=== PATIENT | male | born 1955 | race Caucasian/White ===

== ENCOUNTER 2017-04-03 05:53 | Inpatient (IN) | payer BC ==
[2017-04-03] MEDS ORDERED: SODIUM CHLORIDE 0.9% 1000 ML INFUS.BAG IV ONE (06:16)
[2017-04-03] MEDS ORDERED: ACETAMINOPHEN 1000 MG/100 ML VIAL (NON FORMULARY) IVPB ONE (06:17)
[2017-04-03] MEDS ORDERED: ACETAMINOPHEN INJECTION 100 ML IVPB ONE (06:21)
--- NOTE | 2017-04-03 06:46 | PDOC ---
History of Present Illness - General History Source: Patient, Family Exam Limitations: No Limitations - History of Present Illness Initial Comments: 04/03/17 06:47 The patient is a 62 year old male with a significant past medical history of hyperlipidemia and GERD who presents with two days of increasing productive cough (productive of clear sputum), sore throat and generalized weakness as well as subjective fever and chills this morning. He denies palpitations, dyspnea, orthopnea. He denies headache, neck pain or stiffness, rash. He denies urinary frequency/urgency/hesitancy/dysuriua. He denies abdominal pain, nausea, vomiting, diarrhea. He denies recent dental work, surgery, colonoscopy. No recent travel. He has had a tremor for several months and is seeing a neurologist and has not been formally diagnosed with anything. 04/03/17 06:52 04/03/17 07:09 <Fred Phoenix - Last Filed: 04/03/17 08:02> <Andree Arteaga - Last Filed: 04/03/17 08:46> - General Chief Complaint: SIRS, Suspected/Possible Stated Complaint: DIZZINESS Time Seen by Provider: 04/03/17 06:18 Past History - Past Medical History Hypercholesterolemia: Yes - Psycho/Social/Smoking Cessation Hx Suicidal Ideation: No Smoking History: Never smoked Have you smoked in the past 12 months: No Number of Cigarettes Smoked Daily: 0 Information on smoking cessation initiated: No Hx Alcohol Use: No Drug/Substance Use Hx: No <Fred Phoenix - Last Filed: 04/03/17 08:02> <Andree Arteaga - Last Filed: 04/03/17 08:46> - Past Medical History Allergies/Adverse Reactions: Allergies Allergy/AdvReac Type Severity Reaction Status Date / Time No Known Allergies Allergy Verified 04/03/17 06:06 Home Medications: Ambulatory Orders Simvastatin [Zocor -] 20 mg PO HS 04/03/17 Review of Systems - Review of Systems Comments:: 04/03/17 06:50 CONSTITUTIONAL: Present: fever, chills, diaphoresis, generalized weakness, malaise, loss of appetite HEENT: Present: sore throat Absent: rhinorrhea, nasal congestion, throat swelling, difficulty swallowing, mouth swelling, ear pain, eye pain, visual Changes CARDIOVASCULAR: Absent: chest pain, loss of consciousness, palpitations, irregular heart rate, peripheral edema RESPIRATORY: Present: cough Absent: shortness of breath, dyspnea with exertion, orthopnea, wheezing, stridor , hemoptysis GASTROINTESTINAL: Absent: abdominal pain, abdominal distension, nausea, vomiting, diarrhea, constipation, melena, hematochezia GENITOURINARY: Absent: dysuria, frequency, urgency, hesitancy, hematuria, flank pain, genital pain MUSCULOSKELETAL: Absent: myalgia, arthralgia, joint swelling SKIN: Absent: rash, itching, pallor HEMATOLOGIC/IMMUNOLOGIC: Absent: easy bleeding, easy bruising, lymphadenopathy, frequent infections ENDOCRINE: Absent: unexplained weight gain, unexplained weight loss, heat intolerance, cold intolerance NEUROLOGIC: Absent: headache, focal weakness or paresthesias, dizziness, unsteady gait, seizure, mental status changes, bladder or bowel incontinence PSYCHIATRIC: Absent: anxiety, depression, suicidal or homicidal ideation, hallucinations. <Fred Phoenix - Last Filed: 04/03/17 08:02> *Physical Exam - Vital Signs Last Vital Signs Temp Pulse Resp BP Pulse Ox 102.6 F H 100 H 14 151/83 97 04/03/17 06:06 04/03/17 06:06 04/03/17 06:06 04/03/17 06:06 04/03/17 06:06 - Physical Exam Comments: 04/03/17 06:51 GENERAL: Well developed, well nourished. Awake and alert. No acute distress. HEENT: Dry mucous membranes. Normocephalic, atraumatic. PERRLA, EOMI. No conjunctival pallor. Sclera are non- icteric. Oropharynx is clear. NECK: Supple. Full ROM. No JVD. Carotid pulses 2+ and symmetric, without bruits. No thyromegaly. No lymphadenopathy. CARDIOVASCULAR: Tachycardic rate and regular rhythm. No murmurs, rubs, or gallops. Distal pulses are 2+ and symmetric. PULMONARY: No evidence of respiratory distress. Lungs clear to auscultation bilaterally. No wheezing, rales or rhonchi. ABDOMINAL: Soft. Non-tender. Non-distended. No rebound or guarding. No organomegaly. Normoactive bowel sounds. MUSCULOSKELETAL Normal range of motion at all joints. No bony deformities or tenderness. No CVA tenderness. EXTREMITIES: No cyanosis. No clubbing. No edema. No calf tenderness. SKIN: Warm and dry. Normal capillary refill. No rashes. No jaundice. NEUROLOGICAL: Resting tremor. Alert, awake, appropriate. Cranial nerves 2-12 intact. No deficits to light touch and temperature in face, upper extremities and lower extremities. No motor deficits in the in face, upper extremities and lower extremities. Normoreflexic in the upper and lower extremities. Normal speech. Toes are down- going bilaterally. Gait is normal without ataxia. PSYCHIATRIC: Cooperative. Good eye contact. Appropriate mood and affect. 04/03/17 06:52 <Fred Phoenix - Last Filed: 04/03/17 08:02> - Vital Signs Last Vital Signs Temp Pulse Resp BP Pulse Ox 98.4 F 92 H 16 122/77 96 04/03/17 07:15 04/03/17 07:15 04/03/17 07:15 04/03/17 07:15 04/03/17 07:15 <Andree Arteaga - Last Filed: 04/03/17 08:46> Heart Score/ECG Review - ECG Intrepretation Comment:: 04/03/17 06:54 Normal sinus rhythm at 98, wavy baseline (patient is tremulous), normal axis, normal intervals, no ST changes Baseline complicates interpretation <Fred Phoenix - Last Filed: 04/03/17 08:02> ED Treatment Course - LABORATORY CBC & Chemistry Diagram: 04/03/17 06:30 04/03/17 06:30 - Medications Given in the ED: ED Medications Discontinued Medications Generic Name Dose Route Start Last Admin Trade Name José PRN Reason Stop Dose Admin Acetaminophen 1,000 mg 04/03/17 06:17 04/03/17 06:45 Ofirmev Injection - IVPB 04/03/17 06:18 1,000 mg ONCE ONE Administration Sodium Chloride 1,000 ml 04/03/17 06:16 04/03/17 06:45 Normal Saline - IV 04/03/17 06:17 1,000 ml ONCE ONE Administration <Fred Phoenix - Last Filed: 04/03/17 08:02> - LABORATORY CBC & Chemistry Diagram: 04/03/17 06:30 04/03/17 06:30 - ADDITIONAL ORDERS Additional order review: Laboratory Results 04/03/17 04/03/17 04/03/17 07:05 06:30 06:30 INR PTT (Actin FS) VBG pH POC VBG pCO2 POC VBG pO2 Mixed VBG HCO3 Sodium Potassium Chloride Carbon Dioxide Anion Gap BUN Creatinine Creat Clearance w eGFR Random Glucose Lactic Acid 1.857 Calcium Total Bilirubin AST ALT Alkaline Phosphatase Creatine Kinase Troponin I Total Protein Albumin Urine Color Ltyellow Urine Appearance Clear Urine pH 6.0 Urine Protein Negative Urine Glucose (UA) Negative Urine Ketones Negative Urine Blood 1+ H Urine Nitrite Negative Urine Bilirubin Negative Urine Urobilinogen Negative Ur Leukocyte Esterase Negative Blood Type A POSITIVE Antibody Screen Negative 04/03/17 04/03/17 04/03/17 06:30 06:30 06:30 INR 1.20 H PTT (Actin FS) 40.6 H VBG pH 7.49 H POC VBG pCO2 30.2 L POC VBG pO2 132.0 H Mixed VBG HCO3 23.1 Sodium 138 Potassium 3.7 Chloride 104 Carbon Dioxide 26 Anion Gap 8 BUN 14 Creatinine 1.0 Creat Clearance w eGFR > 60 Random Glucose 113 H Lactic Acid Calcium 8.4 L Total Bilirubin 0.4 AST 16 ALT 23 Alkaline Phosphatase 67 Creatine Kinase 114 Troponin I < 0.02 Total Protein 6.8 Albumin 3.8 Urine Color Urine Appearance Urine pH Urine Protein Urine Glucose (UA) Urine Ketones Urine Blood Urine Nitrite Urine Bilirubin Urine Urobilinogen Ur Leukocyte Esterase Blood Type Antibody Screen 04/03/17 06:30 RBC 4.54 MCV 90.3 MCHC 33.2 RDW 13.6 MPV 8.2 Neutrophils % 84.1 H Lymphocytes % 10.1 Monocytes % 4.9 Eosinophils % 0.3 Basophils % 0.6 - Medications Given in the ED: ED Medications Discontinued Medications Generic Name Dose Route Start Last Admin Trade Name Freq PRN Reason Stop Dose Admin Acetaminophen 1,000 mg 04/03/17 06:17 04/03/17 06:45 Ofirmev Injection - IVPB 04/03/17 06:18 1,000 mg ONCE ONE Administration Sodium Chloride 1,000 ml 04/03/17 06:16 04/03/17 06:45 Normal Saline - IV 04/03/17 06:17 1,000 ml ONCE ONE Administration <Andree Arteaga - Last Filed: 04/03/17 08:46> Medical Decision Making - Medical Decision Making 04/03/17 06:53 The patient is well appearing and in no acute distress The patient has 2 SIRS criteria and we suspect infection qSOFA score 0 He meets diagnostic criteria for sepsis Will initiate sepsis order set 04/03/17 06:55 04/03/17 07:54 Labs noted Chest x-ray emergency Department interpretation: Increased interstitial markings bilaterally CURB 65: 0 But given sepsis, will treat inpatient Clinical impression: Community-acquired pneumonia Sepsis Case discussed in detail with admitting provider including history, physical exam and ancillary studies. Admitting physician has assumed care for the patient, will follow all pending diagnostics and will complete the evaluation and treatment. 04/03/17 08:02 <Fred Phoenix - Last Filed: 04/03/17 08:02> - Medical Decision Making 04/03/17 08:05 Chest Xray read by Dr. Phoenix at 8:00 AM Impression: Increased interstitial markings bilaterally 8:03 AM- Dr. Hernandes called at [phone] 8:04 AM- Dr. Hernandes called at [phone] 8:05 AM- Voice mail left for Dr. Hernandes at [phone] for pending admission. 8:40 AM- Dr Hernandes called at [phone] 8:43 AM- Dr. Hernandes called at [phone] 8:44 AM- Dr Hernandes responded to the page and patient's case was discussed. <Andree Arteaga - Last Filed: 04/03/17 08:46> *DC/Admit/Observation/Transfer - Discharge Dispostion Admit: Yes <Fred Phoenix - Last Filed: 04/03/17 08:02> <Andree Arteaga - Last Filed: 04/03/17 08:46> Diagnosis at time of Disposition: Sepsis, Pneumonia - Referrals
[2017-04-03 06:51] LABS: BASOPHIL 0.6 % (0-2.0); EOSINOPHIL 0.3 % (0-4.5); MCHC 33.2 g/dl (32.0-35.9); MEAN CELL VOLUME 90.3 fl (80-96); MEAN PLT VOLUME 8.2 fl (7.5-11.1); NEUTROPHILS 84.1 % (42.8-82.8); PLATELET COUNT 196 K/MM3 (134-434); RDW 13.6 % (11.9-15.9); VENOUS BLOOD GAS HCO3 23.1 meq/L (19-25); VENOUS PH 7.49 (7.32-7.42)
[2017-04-03 07:09] LABS: INR 1.2 (0.82-1.09); PROTHROMBIN TIME (PATIENT) 13.2 SEC (9.98-11.88)
[2017-04-03 07:11] LABS: ACTIVATED PTT 40.6 SECONDS (26.9-34.4)
[2017-04-03 07:17] LABS: ALBUMIN 3.8 g/dl (3.4-5.0); ANION GAP 8 (8-16); BILIRUBIN,TOTAL 0.4 mg/dL (0.2-1.0); CALCIUM 8.4 mg/dL (8.5-10.1); CO2 26 mmol/L (21-32); COCKROFT - GAULT 88.45; GLUCOSE,RANDOM 113 mg/dL (74-106); SGOT/AST 16 U/L (15-37); SGPT/ALT 23 U/L (12-78); TOT PROT 6.8 g/dl (6.4-8.2)
[2017-04-03 07:19] LABS: ALK PHOS 67 U/L (45-117); TROPONIN I < 0.02 ng/ml (0.00-0.05)
[2017-04-03 07:26] LABS: URINE APPEARANCE CLEAR; URINE BILIRUBIN NEGATIVE (NEGATIVE); URINE COLOR LTYELLOW; URINE GLUCOSE (UA) NEGATIVE (NEGATIVE); URINE KETONE NEGATIVE (NEGATIVE); URINE LEUK ESTERASE NEGATIVE (NEGATIVE); URINE NITRITE NEGATIVE (NEGATIVE); URINE PROTEIN NEGATIVE (NEGATIVE); URINE UROBILINOGEN NEGATIVE E.U./dl (0.2-1.0)
[2017-04-03 07:48] LABS: URINE BLOOD 1+ (NEGATIVE)
[2017-04-03] MEDS ORDERED: AZITHROMYCIN IVPB 500 MG in DEXTROSE 5%-WATER - 250 ML IVPB ONE (07:54)
[2017-04-03] MEDS ORDERED: CEFTRIAXONE 1 GM in DEXTROSE 5%-WATER - 50 ML IVPB ONE (07:54)
[2017-04-03] MEDS ORDERED: AZITHROMYCIN IVPB 250 ML IVPB ONE (07:57)
[2017-04-03] MEDS ORDERED: CEFTRIAXONE 50 ML ONE (07:57)
[2017-04-03] MEDS: SODIUM CHLORIDE 1,000 ML IV SCH ×3 (08:11→19:05)
[2017-04-03 08:32] LABS: URINE MUCUS FEW; URINE RBC 3 /hpf (0-3)
--- NOTE | 2017-04-03 17:26 | EKG ---
Test Reason : Blood Pressure : / mmHG Vent. Rate : 098 BPM Atrial Rate : 098 BPM P-R Int : 152 ms QRS Dur : 082 ms QT Int : 322 ms P-R-T Axes : 035 022 037 degrees QTc Int : 411 ms POOR DATA QUALITY, INTERPRETATION MAY BE ADVERSELY AFFECTED NORMAL SINUS RHYTHM Confirmed by RIVKA GREGG, KARRI ([id number]) on 04/03/2017 5:25:50 PM Referred By: Confirmed By:KARRI TINEO MD
[2017-04-04] MEDS ORDERED: ALBUTEROL SO4 2.5/IPRATROPIUM 0.5 INH SOL 3 ML VIAL.NEB. NEB PRN (00:46)
--- NOTE | 2017-04-04 02:09 | HP ---
Admitting History and Physical - Admission Chief Complaint: Cough History of Present Illness: Pt is a 62 year old male with PMH significant for HLD and GERD. Pt presented to the ER bc of a 3-4 day h/o cough wc is productive w/ greenish sputum. Pt has also noticed increased SOB w/ the cough and chills. He never took his temp at home however in ER he was found to have tmax of >102 w/ a normal WBC. In the ER pt had cxr wc showed ?superimposed infiltrate. - Past Medical History Cardiovascular: Yes: Hyperlipdemia Gastrointestinal: Yes: GERD - Smoking History Smoking history: Never smoked Have you smoked in the past 12 months: No Aproximately how many cigarettes per day: 0 - Alcohol/Substance Use Hx Alcohol Use: No Home Medications - Allergies Allergies/Adverse Reactions: Allergies Allergy/AdvReac Type Severity Reaction Status Date / Time No Known Allergies Allergy Verified 04/03/17 06:06 - Home Medications Home Medications: Ambulatory Orders Amlodipine Besylate [Norvasc -] 10 mg PO DAILY 04/03/17 Simvastatin [Zocor -] 20 mg PO HS 04/03/17 Family Disease History - Family Disease History Family History: Unremarkable Review of Systems - Review of Systems Constitutional: reports: Loss of Appetite, Weakness Eyes: reports: No Symptoms HENT: reports: No Symptoms Neck: reports: No Symptoms Respiratory: reports: Cough Gastrointestinal: reports: No Symptoms Genitourinary: reports: No Symptoms Physical Examination Vital Signs: Vital Signs Temperature 99.2 F 04/03/17 21:36 Pulse Rate 75 04/03/17 21:36 Respiratory Rate 16 04/03/17 21:36 Blood Pressure 126/69 04/03/17 21:36 O2 Sat by Pulse Oximetry (%) 96 04/03/17 10:10 Constitutional: Yes: Well Nourished Eyes: Yes: WNL HENT: Yes: WNL Neck: Yes: WNL Cardiovascular: Yes: WNL Respiratory: Yes: Rhonchi Gastrointestinal: Yes: WNL, Normal Bowel Sounds, Soft Extremities: Yes: WNL Edema: No Neurological: Yes: WNL, Alert, Oriented ...Motor Strength: WNL Problem List - Problems (1) Pneumonia Assessment/Plan: Cont IV ceftriaxone/zithro Cont nebulizers Pulmonary consult Cont IV fluids Code(s): J18.9 - PNEUMONIA, UNSPECIFIED ORGANISM (2) HTN (hypertension) Assessment/Plan: Cont norvasc and monitor BP Code(s): I10 - ESSENTIAL (PRIMARY) HYPERTENSION (3) HLD (hyperlipidemia) Assessment/Plan: Cont lipitor Code(s): E78.5 - HYPERLIPIDEMIA, UNSPECIFIED
[2017-04-04] MEDS: HEPARIN NA (PORCINE) 5,000 UNITS/ML 1ML VIAL SQ SCH ×2 (09:07→21:13)
[2017-04-04] MEDS: amLODIPine BESYLATE 10 MG TABLET (FP) PO SCH (09:07)
[2017-04-04] MEDS: AZITHROMYCIN IVPB 500 MG/250 ML D5W PRE-DOCKED IVPB SCH (09:08)
[2017-04-04] MEDS: SODIUM CHLORIDE 1,000 ML IV SCH ×2 (09:08→21:12)
[2017-04-04] MEDS: cefTRIAXone 1 GM/50 ML BAG (PRE-DOCKED) IVPB SCH (09:08)
[2017-04-04] MEDS ORDERED: AZITHROMYCIN IVPB 500 MG in DEXTROSE 5%-WATER - 250 ML IVPB SCH (10:00)
[2017-04-04] MEDS ORDERED: CEFTRIAXONE 1 GM in DEXTROSE 5%-WATER - 50 ML IVPB SCH (10:00)
--- NOTE | 2017-04-04 11:33 | CONSULT ---
Consultation: REQUESTING PROVIDER: CONSULT REQUEST: We have been asked to medically evaluate this patient for ( pulmonology). HISTORY OF PRESENT ILLNESS: 62 y/o m with past medical h/o htn, hld. came to hospital with chief complaint of feeling cold/chills. Patient states that he has sore throat and productive cough from 2 days which is same from two days, phlem is white in color, no blood in phlem. Patient states that yesterday he started feeling cold/ chills so h came to hospital. He also states that he felt like his body is warm but didnt check temp. Denies sob, chest pain, palpitations , lightheadedness, dizziness. Patient granddaughter has runny nose and fever who lives with them. NO recent history of hospitalization. In Ed patient was found to have temp of 102 and right middle/lower lobe infiltrate and patient was started on Iv antibiotics. PMH: htn,hld allergies: NKDA social : non smoker, non alcholic REVIEW OF SYSTEMS: CONSTITUTIONAL: Absent: fever, chills, HEENT: Absent: rhinorrhea, nasal congestion, sore throat CARDIOVASCULAR: Absent: chest pain, syncope, palpitations, irregular heart rate, lightheadedness , peripheral edema RESPIRATORY: Absent: cough, shortness of breath, wheezing, stridor, hemoptysis GASTROINTESTINAL: Absent: abdominal pain, abdominal distension, nausea, vomiting, diarrhea, constipation, GENITOURINARY: Absent: dysuria, frequency, urgency, hesitancy, genital pain ENDOCRINE: Absent: unexplained weight gain, unexplained weight loss, NEUROLOGIC: Absent: headache, focal weakness or paresthesias, PHYSICAL EXAMINATION Vital Signs - 24 hr 04/03/17 04/03/17 04/04/17 14:04 21:36 03:05 Temperature 98.9 F 99.2 F Pulse Rate 77 75 Respiratory 18 16 Rate Blood Pressure 101/41 126/69 O2 Sat by Pulse 96 Oximetry (%) 04/04/17 04/04/17 06:00 10:00 Temperature 98.9 F 98.2 F Pulse Rate 74 69 Respiratory 16 18 Rate Blood Pressure 123/69 131/77 O2 Sat by Pulse Oximetry (%) GENERAL: Awake, alert, and fully oriented, in no acute distress. HEAD: Normal with no signs of trauma. EYES: Pupils equal, round and reactive to light conjunctiva clear. EARS, NOSE, THROAT: nares clear, moist oral mucosa, no erythema NECK:no lymphadenopathy, JVD, or masses., thyroid notpalpable LUNGS: breath sound equal b/l, no wheez, no crackels, tympanic to pecuss, TVF more on right side in basal areaand middle lobe. HEART:s1s2 normal, no murmur ABDOMEN: Soft, nontender, not distended, normoactive bowel sounds, no guarding, no rebound, no masses. no hepato or spleenimegaly appreciated UPPER EXTREMITIES: 2+ pulses, warm, well-perfused. No peripheral edema. LOWER EXTREMITIES: 2+ pulses, warm, well-perfused. No peripheral edema. PSYCHIATRIC: Cooperative. SKIN: Warm, dry, few folliculitis present n cheat Active Medications Generic Name Dose Route Start Last Admin Trade Name Freq PRN Reason Stop Dose Admin Albuterol/Ipratropium 1 amp 04/04/17 00:46 Duoneb - NEB Q6H PRN SHORTNESS OF BREATH Amlodipine Besylate 10 mg 04/04/17 10:00 04/04/17 09:07 Norvasc - PO 10 mg DAILY NICK Administration Atorvastatin Calcium 10 mg 04/04/17 22:00 Lipitor - PO HS NICK Azithromycin 500 mg 04/04/17 10:00 04/04/17 09:08 Zithromax 500mg Ivpb (Pre-Docked) IVPB 500 mg DAILY NICK Administration Ceftriaxone Sodium 1 gm 04/04/17 10:00 04/04/17 09:08 Rocephin 1gm Ivpb (Pre-Docked) IVPB 1 gm DAILY NICK Administration Heparin Sodium (Porcine) 5,000 unit 04/04/17 10:00 04/04/17 09:07 Heparin - SQ 5,000 unit BID NICK Administration Sodium Chloride 1,000 mls @ 75 mls/hr 04/04/17 07:30 04/04/17 09:08 Normal Saline - IV Not Given ASDIR [facility] ASSESSMENT/PLAN: 62 y/o male came to hospital with cough, chills, fever and found to have infiltrate in right middle and lower lobe. community acquired pneumonia afebrile, wbc 11.0, bp 131/77, rr16, curb 65 : 0 b/c no growth p/ follow urine culture, urine for legionella, strep monitor vitals keep spo2> 90 repeat cbc tomorrow morning ct chest without contrast antibiotics as per primary team. neuro consult in view of right hand tremmor possible discharge tomorrow on oral antibiotics Dispo: We will continue to follow the patient. Thank you for this consultative opportunity. Visit type - Emergency Visit Emergency Visit: Yes ED Registration Date: 04/03/17 Care time: The patient presented to the Emergency Department on the above date and was hospitalized for further evaluation of their emergent condition. - New Patient This patient is new to me today: Yes Date on this admission: 04/04/17 - Critical Care Critical Care patient: No
--- NOTE | 2017-04-04 12:30 | PN ---
Teaching Attending Note Name of Resident: Filippo Calixto ATTENDING PHYSICIAN STATEMENT I saw and evaluated the patient. I reviewed the resident's note and discussed the case with the resident. I agree with the resident's findings and plan as documented. SUBJECTIVE: improved OBJECTIVE:right hand tremor diminished breath sounds right posterior/axillary region ASSESSMENT AND PLAN:LIKELY CABP RIGHT HAND TREMOR H/O HTN/HPL PANCULTURE/CHECK URINE ANTIGENS/CT CHEST NO CONTRAST/ANTIBIOTICS TO COVER [facility]/NEURO JESUS ALBERTO COX MD
--- NOTE | 2017-04-04 21:12 | PN ---
Progress Note, Physician - Current Medication List Current Medications: Active Medications Albuterol/Ipratropium (Duoneb -) 1 amp NEB Q6H PRN PRN Reason: SHORTNESS OF BREATH Amlodipine Besylate (Norvasc -) 10 mg PO DAILY [facility] Last Admin: 04/04/17 09:07 Dose: 10 mg Atorvastatin Calcium (Lipitor -) 10 mg PO [facility] Azithromycin (Zithromax 500mg Ivpb (Pre-Docked)) 500 mg IVPB DAILY [facility] Last Admin: 04/04/17 09:08 Dose: 500 mg Ceftriaxone Sodium (Rocephin 1gm Ivpb (Pre-Docked)) 1 gm IVPB DAILY [facility] Last Admin: 04/04/17 09:08 Dose: 1 gm Heparin Sodium (Porcine) (Heparin -) 5,000 unit SQ BID [facility] Last Admin: 04/04/17 09:07 Dose: 5,000 unit Sodium Chloride (Normal Saline -) 1,000 mls @ 75 mls/hr IV ASDIR [facility] Last Admin: 04/04/17 09:08 Dose: Not Given - Objective Vital Signs: Vital Signs Temperature 98.4 F 04/04/17 19:00 Pulse Rate 74 04/04/17 19:00 Respiratory Rate 20 04/04/17 19:00 Blood Pressure 132/74 04/04/17 19:00 O2 Sat by Pulse Oximetry (%) 96 04/04/17 09:00 Constitutional: Yes: Calm Eyes: Yes: WNL HENT: Yes: WNL Neck: Yes: Supple Cardiovascular: Yes: WNL, Regular Rate and Rhythm Respiratory: Yes: WNL, Regular, CTA Bilaterally Gastrointestinal: Yes: WNL, Normal Bowel Sounds, Soft Labs: INR, PTT INR 1.20 (0.82-1.09) H 04/03/17 06:30 Problem List - Problems (1) Pneumonia Assessment/Plan: Cont IV ceftriaxone/zithro Cont nebulizers Code(s): J18.9 - PNEUMONIA, UNSPECIFIED ORGANISM (2) HTN (hypertension) Assessment/Plan: Cont norvasc and monitor BP Code(s): I10 - ESSENTIAL (PRIMARY) HYPERTENSION (3) HLD (hyperlipidemia) Assessment/Plan: Cont lipitor Code(s): E78.5 - HYPERLIPIDEMIA, UNSPECIFIED
[2017-04-04] MEDS ORDERED: ATORVASTATIN CA 10 MG TABLET (FP) PO SCH (22:00)
[2017-04-04] MEDS ORDERED: ACETAMINOPHEN 325 MG TABLET (FP) PO PRN (23:22)
[2017-04-05 08:30] LABS: BASOPHIL 0.5 % (0-2.0); EOSINOPHIL 1.2 % (0-4.5); MCH 30.2 pg (25.7-33.7); MEAN CELL VOLUME 91.6 fl (80-96); MEAN PLT VOLUME 8.2 fl (7.5-11.1); NEUTROPHILS 64.3 % (42.8-82.8); PLATELET COUNT 195 K/MM3 (134-434); WHITE BLOOD COUNT 6.6 K/mm3 (4.0-10.0)
[2017-04-05 08:56] LABS: ALBUMIN 3.9 g/dl (3.4-5.0); ANION GAP 10 (8-16); CO2 25 mmol/L (21-32); CREATININE 0.9 mg/dL (0.7-1.3); GLUCOSE,RANDOM 127 mg/dL (74-106); SGOT/AST 10 U/L (15-37); SGPT/ALT 20 U/L (12-78)
[2017-04-05 08:57] LABS: ALK PHOS 64 U/L (45-117); BILIRUBIN,TOTAL 0.4 mg/dL (0.2-1.0); TOT PROT 7.4 g/dl (6.4-8.2)
[2017-04-05] MEDS: cefTRIAXone 1 GM/50 ML BAG (PRE-DOCKED) IVPB SCH (09:15)
[2017-04-05] MEDS: AZITHROMYCIN IVPB 500 MG/250 ML D5W PRE-DOCKED IVPB SCH (09:15)
[2017-04-05] MEDS: HEPARIN NA (PORCINE) 5,000 UNITS/ML 1ML VIAL SQ SCH (09:15)
[2017-04-05] MEDS: amLODIPine BESYLATE 10 MG TABLET (FP) PO SCH (09:15)
--- NOTE | 2017-04-05 14:14 | PN ---
Progress Note (short form) - Note Progress Note: PULMONARY VSS/AFEBRILE ANICTERIC CHEST CLEAR S1S2 BS+ SOFT NO EDEMA LABS/IMAGING/MICRO/NOTES REVIEWED WOULD CONTINUE OUTPATIENT ANTIBIOTICS Agustin COX MD
[2017-04-05 15:52] VITALS: BP 146/73; PULSE 78; TEMP 98.2
== END 2017-04-05 17:01 | disposition home or self-care (01) | DRG 871 ==
LOC: JER 05:53 → JERBED 07:55 → J5S 09:04
PROVIDERS: ADMIT Internal Medicine; ATTEND Internal Medicine
DX: A41.9 Sepsis, unspecified organism (principal); J18.9 Pneumonia, unspecified organism; E78.5 Hyperlipidemia, unspecified; K21.9 Gastro-esophageal reflux disease without esophagitis; I10 Essential (primary) hypertension; R25.1 Tremor, unspecified
CPT/HCPCS: 36415; 71010-TC; 71250-TC; 80053; 81003; 81015; 82550; 82803; 83605; 84484; 85025; 85610; 85730; 86850; 86900; 86901; 87040; 87086; 93005; 93010; 99285-25; J1644

== ENCOUNTER 2017-09-14 01:10 | Emergency (ER) | payer BC ==
--- NOTE | 2017-09-14 02:58 | PDOC ---
History of Present Illness - General Chief Complaint: Respiratory Stated Complaint: CHILLS Time Seen by Provider: 09/14/17 01:49 - History of Present Illness Initial Comments: 09/14/17 02:53 CHIEF COMPLAINT: chills HISTORY OF PRESENT ILLNESS: 62 yo M with hx of HTN and GERD presents to ED with chills. Patient's son is at bedside and states that patient has had no fever, vomiting, diarrhea, cough, runny nose, or sneezing, but he was concerned due to a prior hospitalization for pneumonia earlier this year. Patient currently denies any complaints and states "maybe I feel a little cold but not really." PAST MEDICAL HISTORY: Denies past medical history FAMILY HISTORY: Denies SOCIAL HISTORY: Denies tobacco, alcohol, illicit drug use. SURGICAL HISTORY: Denies ALLERGIES: No known drug allergies REVIEW OF SYSTEMS General/Constitutional: "chills around 10 pm tonight." Denies fever. Denies weakness. HEENT: Denies change in vision. Denies ear pain or discharge. Denies sore throat. Cardiovascular: Denies chest pain or shortness of breath. Respiratory: Denies cough, wheezing. Gastrointestinal: Denies nausea, vomiting, diarrhea. Genitourinary: Denies dysuria, frequency, or change in urination. Musculoskeletal: Denies joint or muscle swelling or pain. Denies neck or back pain. Skin and breasts: Denies rash or easy bruising. Neurologic: Denies headache, vertigo, loss of consciousness, or loss of sensation. PHYSICAL EXAM General Appearance: Well-appearing, appropriately dressed. No apparent distress. HEENT: EOMI, PERRLA, normal ENT inspection, normal voice, TMs normal, pharynx normal. No conjunctival pallor. No photophobia, scleral icterus. Neck: Supple. Trachea midline. No tenderness, rigidity, carotid bruit, stridor , lymphadenopathy, or thyromegaly. Respiratory/Chest: Lungs CTAB. No shortness of breath, chest tenderness, respiratory distress, accessory muscle use. No crackles, rales, rhonchi, stridor , wheezing, dullness Cardiovascular: RRR. S1, S2. Gastrointestinal/Abdominal: Normal bowel sounds. Abdomen soft, non-distended. No tenderness or rebound tenderness. No organomegaly, pulsatile mass, guarding , hernia, hepatomegaly, splenomegaly. Musculoskeletal/Extremities: Normal inspection. FROM of all extremities, normal capillary refill. Pelvis Stable. No CVA tenderness. No tenderness to extremities, pedal edema, swelling, erythema or deformity. Integumentary: Appropriate color, dry, warm. 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 Fully oriented, alert. Appropriate mood/affect. Motor strength 5/5. No appreciable EOM palsy, facial droop or sensory deficit. Past History - Past Medical History Allergies/Adverse Reactions: Allergies Allergy/AdvReac Type Severity Reaction Status Date / Time No Known Allergies Allergy Verified 09/14/17 01:49 Home Medications: Ambulatory Orders Amlodipine Besylate [Norvasc -] 10 mg PO DAILY 04/03/17 Simvastatin [Zocor -] 20 mg PO HS 04/03/17 Amoxicillin/Potassium Clav [Augmentin 875-125 Tablet] 1 each PO BID #14 tablet 04/05/17 Azithromycin [Zithromax -] 250 mg PO DAILY #5 tab 04/05/17 Hypercholesterolemia: Yes - Suicide/Smoking/Psychosocial Hx Smoking History: Never smoked Have you smoked in the past 12 months: No Number of Cigarettes Smoked Daily: 0 Information on smoking cessation initiated: No Hx Alcohol Use: No Drug/Substance Use Hx: No *Physical Exam - Vital Signs Last Vital Signs Temp Pulse Resp BP Pulse Ox 98.2 F 78 20 142/80 97 09/14/17 01:49 09/14/17 01:49 09/14/17 01:49 09/14/17 01:49 09/14/17 01:49 ED Treatment Course - RADIOLOGY Radiology Studies Ordered: Category Date Time Status CHEST PA & LAT [RAD] Stat Radiology 09/14/17 02:14 Ordered Medical Decision Making - Medical Decision Making 09/14/17 02:57 62 yo M with hx of HTN and GERD presents to ED with chills. -CXR CXR negative. Patient's vital signs WNL. Exam unremarkable. Patient has no complaints at this time. Advised patient and son to f/u with primary care doctor this week and of signs and symptoms for return to ER; patient verbalized understanding and agrees to plan. *DC/Admit/Observation/Transfer Diagnosis at time of Disposition: Chills - Discharge Dispostion Disposition: HOME Condition at time of disposition: Stable Admit: No - Referrals Referrals: Iban Vegas MD [Staff Physician] - - Patient Instructions Printed Discharge Instructions: How to Take an Oral Temperature Additional Instructions: Please follow up with your primary care doctor or the one referred. If you develop any fever, vomiting, diarrhea, cough, runny nose, or any new or worsening symptoms, please return to the ER.
[2017-09-14 04:08] VITALS: BP 142/80; PULSE 78; TEMP 98.2; BMI 29.6
== END 2017-09-14 03:18 | disposition home or self-care (01) ==
LOC: JER 01:10
DX: R68.83 Chills (without fever) (principal); I10 Essential (primary) hypertension; E78.00 Pure hypercholesterolemia, unspecified; K21.9 Gastro-esophageal reflux disease without esophagitis
CPT/HCPCS: 71020-TC; 99281-25